=== PATIENT | female | born 1950 | race Two or more races ===

== ENCOUNTER 2018-08-03 11:41 | Day surgery (SDC) | payer MEDICARE, MEDICAID ==
[~2018-08-03] VITALS: Ht 154.9 cm; Wt 81.2 kg
[~2018-08-03 11:41] MED LIST: SODIUM CHLORIDE 0.9% 500 ML IV ONE
[2018-08-03] MEDS ORDERED: LIDOCAINE HCL 1% 20ML VIAL (Pyxis) INJ ONE (11:46)
[2018-08-03] MEDS ORDERED: BACITRACIN 15GM TUBE TOP ONE (11:46)
[2018-08-03] MEDS ORDERED: BACITRACIN 50,000 UNITS/VIAL ONE (11:47)
[2018-08-03] MEDS ORDERED: BUPIVACAINE HCL/PF 0.5% (5MG/ML) 10ML ONE (11:47)
[2018-08-03] MEDS ORDERED: THROMBIN (BOVINE) 5000 UNITS/VIAL TOP ONE (11:47)
[2018-08-03] MEDS ORDERED: HEPARIN SODIUM 1,000 UNIT/1ML VIAL IV ONE (11:47)
[2018-08-03] MEDS ORDERED: MIDAZOLAM HCL 2 MG/2 ML VIAL ONE (12:35)
[2018-08-03] MEDS ORDERED: FENTANYL CITRATE/PF 50MCG/ML 2ML VIAL ONE (12:35)
[2018-08-03] MEDS ORDERED: PROPOFOL 10MG/ML 100ML 100 ML IV ONE (12:49)
[2018-08-03] MEDS ORDERED: LIDOCAINE HCL 2% 5ML SYRINGE IV ONE (13:00)
[2018-08-03] MEDS ORDERED: ROPIVACAINE HCL 10MG/ML 20 ML VIAL EPI ONE (13:06)
[2018-08-03 13:13] LABS: BASOPHILS % 0.7 % (0.0-2.0); EOSINOPHILS % 2.8 % (0.0-5.0); HEMATOCRIT. 34.1 % (36.0-48.0); HEMOGLOBIN. 11.4 g/dL (12.0-16.0); LYMPHOCYTES % 23.2 % (20.0-50.0); MEAN CORPUSCULAR HEMOGLOBIN 30.8 pg (28.0-32.0); MEAN CORPUSCULAR VOLUME 91.9 fL (81.0-99.0); MEAN PLATELET VOLUME 8.7 fl (7.4-10.4); MONOCYTES % 8.8 % (2.0-8.0); NEUTROPHILS % 64.5 % (40.0-76.0); PLATELET 220 x1000/uL (130-400); RED BLOOD CELL COUNT 3.71 mill/uL (4.2-5.4); RED CELL DISTRIBUTION WIDTH 12.9 % (11.6-14.6)
[2018-08-03 13:23] LABS: INR 1.1; PARTIAL THROMBOPLASTIN TIME 24.4 sec (23.4-31.0); PROTHROMBIN TIME 10.9 sec (9.6-11.0)
[2018-08-03] MEDS ORDERED: HYDR-4134 PO (13:40)
[2018-08-03] MEDS ORDERED: LOSA100T14 PO (13:40)
[2018-08-03] MEDS ORDERED: AMLO10TA80 PO (13:40)
[2018-08-03] MEDS ORDERED: CALC0.253 PO (13:40)
[2018-08-03] MEDS ORDERED: METO-396 PO (13:40)
[2018-08-03] MEDS ORDERED: FURO80TA3 PO (13:40)
[2018-08-03] MEDS ORDERED: ATOR20TA65 PO (13:40)
[2018-08-03] MEDS ORDERED: DOXA4TAB2 PO (13:40)
[2018-08-03] MEDS ORDERED: MEPERIDINE HCL/PF 25MG/ML CPJ IV PRN (14:30)
[2018-08-03] MEDS ORDERED: HYDROMORPHONE HCL/PF 2MG/ML CPJ IV PRN (14:30)
[2018-08-03] MEDS ORDERED: ONDANSETRON HCL 4MG/2ML INJ IV PRN (14:30)
[2018-08-03] MEDS ORDERED: MORPHINE SULFATE 4 MG/ML CPJ (NOT FOR IM USE) IV PRN (14:30)
[2018-08-03] MEDS ORDERED: FENTANYL CITRATE/PF 50MCG/ML 2ML VIAL IV PRN (14:30)
== END 2018-08-03 19:00 | disposition home or self-care (01) ==
LOC: OR 11:41
PROVIDERS: ATTEND Surgery Vascular Surgery
DX: I12.0 Hypertensive chronic kidney disease with stage 5 chronic kidney disease or end stage renal disease (principal); N18.6 End stage renal disease; E66.9 Obesity, unspecified; Z86.2 Personal history of diseases of the blood and blood-forming organs and certain disorders involving the immune mechanism
CPT/HCPCS: 36415; 36821; 80048; 85025; 85610; 85730; 93005; J1644; J2250; J2704; J2795; J3010; J3490; A4565